=== PATIENT | male | born 1950 | race Caucasian/White ===

== ENCOUNTER 2020-06-29 13:46 | Inpatient (IN) ==
[~2020-06-29 13:46] MED LIST: Povidone-Iodine 45 ML, Sodium Chloride IRRigation 1,000 ML IR ONE
[2020-06-29] MEDS ORDERED: CeFAZolin Syr 2,000MG/20 ML 2,000 MG/20 ML SYRINGE IVPB ONE (14:06)
[2020-06-29] MEDS ORDERED: Ringers Solution, Lactated 1,000 ML IVC SCH ×2 (14:15→18:12)
[2020-06-29] MEDS ORDERED: *HR* FentaNYL (PF) 100 MCG/2 ML VIAL ONE (14:21)
[2020-06-29] MEDS ORDERED: *HR* Midazolam HCl 2 MG/2 ML VIAL ONE (14:22)
[2020-06-29] MEDS ORDERED: *HR* Propofol 200 MG/20 ML VIAL IVP ONE (14:22)
[2020-06-29] MEDS ORDERED: *HR* Succinylcholine 200 MG/10 ML VIAL IVP ONE (14:23)
[2020-06-29] MEDS ORDERED: Dexamethasone 4 MG/ML VIAL ONE (14:23)
[2020-06-29] MEDS ORDERED: Lidocaine -MPF 2% 2 ML VIAL ONE (14:23)
[2020-06-29] MEDS ORDERED: Lidocaine HCL 4 ML Topical Solution (Laryng-O-Jet Kit Sterile Pak) TP ONE (14:23)
[2020-06-29] MEDS ORDERED: Ondansetron 4 MG/2 ML VIAL ONE (14:23)
[2020-06-29] MEDS ORDERED: Acetaminophen IV 1,000 MG/100 ML INFUS..BTL ONE (14:24)
[2020-06-29] MEDS ORDERED: Vancomycin 1,000 MG VIAL ONE (14:24)
[2020-06-29] MEDS ORDERED: Ethanol\\Acetic Acid\\Na Ace\\Ben 1,000 ML IRRIG.SOLN IR ONE (14:24)
[2020-06-29] MEDS ORDERED: *HR* HYDROmorphone PF 0.5 MG/0.5 ML SYRINGE IVP PRN (14:57)
[2020-06-29] MEDS ORDERED: *HR* OxyCODONE Immed Rel 5 MG TABLET PO PRN ×2 (14:57→18:12)
[2020-06-29] MEDS ORDERED: Ondansetron 4 MG/2 ML VIAL IVP PRN ×2 (14:57→18:12)
[2020-06-29] MEDS ORDERED: ROPIVACAINE/PF/NS 0.25% 1 EACH SYRINGE INTRAART ONE (14:58)
[2020-06-29] MEDS ORDERED: Ropivacaine/PF 0.5% 30 ML VIAL ONE (14:58)
[2020-06-29] MEDS ORDERED: *HR* Enoxaparin 30 MG/0.3 ML SYRINGE SQ SCH (18:00)
[2020-06-29 18:02] LABS: Hematocrit 35.1 % (37.5-50.1); Hemoglobin 11.7 g/dL (12.9-16.9)
[2020-06-29] MEDS ORDERED: Nitroglycerin 0.4 MG TAB.SUBL SL PRN (18:12)
[2020-06-29] MEDS ORDERED: MOM Conc 10 ML UD.LIQ PO PRN (18:12)
[2020-06-29] MEDS ORDERED: Dextrose Gel 15 GM/37.5 ML TUBE PO PRN ×2 (18:12)
[2020-06-29] MEDS ORDERED: Sennosides 8.6 MG TABLET PO PRN (18:12)
[2020-06-29] MEDS ORDERED: *HR* Dextrose 50 % in Water (Vial) 50 ML VIAL IVP PRN (18:12)
[2020-06-29] MEDS ORDERED: D5% in Water 1,000 ML IVC PRN (18:12)
[2020-06-29] MEDS ORDERED: *HR* OxyCODONE/APAP 5/325 TABLET PO PRN (18:12)
[2020-06-29] MEDS ORDERED: Albuterol 2.5 MG/3 ML NEBULIZER IH PRN (18:12)
[2020-06-29] MEDS ORDERED: Naloxone 0.4 MG/ML INJ IVP PRN (18:12)
[2020-06-29] MEDS: Insulin LISPRO 300 UNITS/3 ML VIAL SQ SCH (20:17)
[2020-06-29] MEDS: Budesonide/Formoterol 160/4.5 1 PUFF INH IH SCH (20:50)
[2020-06-29] MEDS ORDERED: Insulin LISPRO 300 UNITS/3 ML VIAL SQ SCH (21:00)
[2020-06-30] MEDS: CeFAZolin 2 GM/120 ML BAG IVPB SCH ×2 (00:10→08:25)
[2020-06-30 02:36] LABS: BUN/Creatinine Ratio 16 (6-26); Blood Urea Nitrogen 17 mg/dL (8-23); Calcium 9.3 mg/dL (8.6-10.3); Carbon Dioxide 24 mEq/L (23-29); Chloride 102 mEq/L (98-107); Glucose 216 mg/dL (70-105); Osmolality,Calculated 288 (280-300); Potassium 4.5 mEq/L (3.5-5.1); Sodium 135 mEq/L (136-145); eGFR For African Americans > 60 (> 60); eGFR For Non-African Americans > 60 (> 60)
[2020-06-30] MEDS ORDERED: *HR* Enoxaparin 30 MG/0.3 ML SYRINGE SQ SCH (06:00)
[2020-06-30 06:42] LABS: Hemoglobin 11.6 g/dL (12.9-16.9)
[2020-06-30 06:43] LABS: Hematocrit 35.4 % (37.5-50.1)
[2020-06-30] MEDS: Insulin LISPRO 300 UNITS/3 ML VIAL SQ SCH ×2 (08:24→12:57)
[2020-06-30] MEDS ORDERED: Metoprolol XL (24 HR) Succ 25 MG TAB.ER.24H PO SCH (09:00)
[2020-06-30 10:06] VITALS: BP 119/66
[2020-06-30] MEDS: Budesonide/Formoterol 160/4.5 1 PUFF INH IH SCH (11:01)
== END 2020-06-30 16:27 | disposition home or self-care (01) | DRG 483 ==
LOC: SAMDAY 13:46 → 3NENU 17:52
PROVIDERS: ADMIT Orthopaedic Surgery; ATTEND Orthopaedic Surgery